=== PATIENT | male | born 1945 | race Caucasian/White ===

== ENCOUNTER 2016-12-27 15:12 | Observation (INO) | payer MEDICARE, OTHER ==
[~2016-12-27] VITALS: Ht 190.5 cm; Wt 171.8 kg
[~2016-12-27 15:12] MED LIST: ASPI-973 PO; GLIP10TA10 PO; HYDR50TA3 PO; INSU100V7 SUBQ; LISI-567 PO; PIOG30TA26 PO; RIVA20TA PO; SIMV20TA4 PO
[2016-12-27 15:15] VITALS: BP 143/82; PULSE 85; RESP 16; O2SAT 97
[2016-12-27 16:00] LABS: BASOPHILS % (AUTO) 0.5 % (0-3); EOSINOPHILS % (AUTO) 1.3 % (0-5); MONOCYTES % (AUTO) 8.4 % (4-12); Mean Corpuscular Hemoglobin 27.8 pg (27.0-35.0); Mean Corpuscular Volume 82.2 fL (81-100); NEUTROPHILS % (AUTO) 66.9 % (40-74); Platelet Count 224 bil/L (150-400)
[2016-12-27 16:19] LABS: INR 1.06 ratio
[2016-12-27 16:30] LABS: TROPONIN T 0.016 ug/L (0.0-0.011)
[2016-12-27 16:41] LABS: Magnesium 1.9 mg/dL (1.6-2.6)
--- NOTE | 2016-12-27 16:59 | DRSVH ---
PROCEDURE: X-RAY CHEST, TWO VIEWS ([id number]) INDICATIONS: abnormal ekg, left arm pain. TECHNIQUE: 2 views of the chest were acquired. COMPARISON: [facility], CR, XR CHEST 1VW (PORTABLE), 04/04/2016, 10:13. FINDINGS: Surgical changes and devices: None. Lungs and pleura: No pleural effusions or pneumothorax. Lungs are clear. Mediastinum: Mediastinal contours are normal. Heart size is normal. Bones and chest wall: No suspicious bony abnormalities. Soft tissues appear unremarkable. IMPRESSION: No acute disease Dictated by: Jorge Troy M.D. on 12/27/2016 at 16:57 Approved by: Jorge Troy M.D. on 12/27/2016 at 16:57
--- NOTE | 2016-12-27 17:34 | ED.REPORT ---
HPI-Chest Pain 40 and Over Date of Service Dec 27, 2016 ED Provider: Dale Mcdaniel PA-C Micheal is a 71-year-old male with a history of diabetes, hypertension, hyperlipidemia and pulmonary embolus who presents with a chief complaint of neck and shoulder pain. Reports he had an episode began as pain in the side and left side of his neck and progressive pain in his left shoulder. Pain started at rest. He called EMS at this point. He reports that his pain resolved shortly after calling EMS, which administered aspirin.. Denies diaphoresis, chest pain, palpitations, dizziness, syncope, shortness of breath, wheezing. Denies history of cardiac disease, angina, [place]. Review of records reveals a diagnosis of unstable angina. Patient reports being diagnosed with a PE 2 months ago. He is currently taking xarelto. Nursing Notes Stated Complaint: CHEST PAIN- HAD EKG DONE BY PARAMEDICS Chief Complaint: General Complaint Nursing Notes Reviewed: Yes Allergies: Coded Allergies: Penicillins (Verified Allergy, Severe, HIVES, 12/27/16) cephalexin (Unverified Allergy, Severe, HIVES, 12/27/16) hydrocodone bitartrate (Verified Allergy, Severe, Hives, 12/27/16) doxycycline (Unverified Allergy, Unknown, UNKNOWN, 12/27/16) Scheduled Aspirin (Aspirin) 81 Mg Tablet 81 MG PO DAILY Glipizide (Glipizide) 10 Mg Tablet 10 MG PO BIDAC Hydrochlorothiazide (Hydrochlorothiazide) 50 Mg Tablet 50 MG PO DAILY Insulin Glargine (Lantus U100 Insulin Vial) 100 Unit/Ml Vial 50 UNIT SUBQ HS Lisinopril (Lisinopril) 20 Mg Tablet 20 MG PO DAILY Pioglitazone (Pioglitazone) 30 Mg Tablet 30 MG PO DAILY Rivaroxaban (Xarelto) 20 Mg Tablet 20 MG PO MORNING Simvastatin (Simvastatin) 20 Mg Tablet 20 MG PO HS General Time Seen by MD: 17:15 Chief Complaint Other (neck and shoulder pain.) Sudden in Onset?: Yes Past Medical History Past Medical History Incontinence prostate, kidney and colon cancer depression anxiety pneumonia bipolar disorder previous suicied attempt GERD UTI squamos cell CA face osteoarthritis Reports: Diabetes mellitus, Hyperlipidemia, Hypertension Past Surgical History L nephrectomy, radical prostatectomy cholecystectomy vasectomy orchiectomy wrist, ankle and foot repair Smoking History Light Tobacco Smoker Social History Alcohol Use: "Social" Drug Use: Denies drug use Other Social History: Good social support, Ambulatory Status Independent Review of Systems General: Denies fever, chills, malaise. HEENT: Denies congestion, headache, sore throat. Respiratory: Denies dyspnea, cough, shortness of breath, wheezing. Cardiovascular: Denies chest pain, palpitations. Gastrointestinal: Denies vomiting, diarrhea, abdominal pain. Genitourinary: Denies frequency, urgency, dysuria, hematuria. Otherwise as noted in HPI. Physical Exam General: Well appearing, well developed, obese, no acute distress. Head: Atraumatic, normocephalic. Eyes: No scleral icterus or injection. No discharge. Vision grossly intact. ENT: Voice clear, hearing grossly intact. Respiratory: Regular rate and rhythm. Breath sounds present, clear to auscultation and equal bilaterally. No respiratory distress. No increased work of breathing, speaks in complete sentences. Cardiovascular: Regular rate and rhythm, without murmur, gallop or rub. No pedal edema. Gastrointestinal: Obese non-tender without guarding or rebound. Bowel sounds normoactive. Skin: Warm and dry. Neurological: Grossly nonfocal. Psychological: Alert and oriented. Speech appropriate, linear and logical. Behavior appropriate. Initial Vital Signs Vital Signs (First) Date Time Temp Pulse Resp B/P Pulse Ox O2 Delivery O2 Flow Rate FiO2 12/27/16 15:15 36.2 85 16 143/82 97 Room Air Initial VS: Reviewed, Vital signs normal Interpretation & Diagnostics Lab Results Interpretation Result Diagram: 12/27/16 1546 12/27/16 1546 Test 12/27/16 15:46 White Blood Count 8.3th/mm3 (3.8-10.1) Red Blood Count 4.93mil/mm3 (4.40-5.80) Hemoglobin 13.7g/dL (13.8-17.2) Hematocrit 40.5% (41.0-50.0) Mean Corpuscular Volume 82.2fL (81-100) Mean Corpuscular Hemoglobin 27.8pg (27.0-35.0) Mean Corpuscular Hemoglobin Concent 33.8% (32.0-37.0) Red Cell Distribution Width 13.8% (12.3-15.4) Platelet Count 224bil/L (150-400) Neutrophils (%) (Auto) 66.9% (40-74) Lymphocytes (%) (Auto) 22.8% (14-46) Monocytes (%) (Auto) 8.4% (4-12) Eosinophils (%) (Auto) 1.3% (0-5) Basophils (%) (Auto) 0.5% (0-3) Prothrombin Time 11.4sec (8.1-12.5) Prothromb Time International Ratio 1.06ratio D-Dimer < 0.5mg/L (<0.50) Sodium Level 134mEq/L (134-144) Potassium Level 4.1mEq/L (3.5-5.2) Chloride Level 96mEq/L (97-108) Carbon Dioxide Level 25mmol/L (18-29) Blood Urea Nitrogen 27mg/dL (8-27) Creatinine 1.53mg/dL (0.76-1.27) Estimat Glomerular Filtration Rate 48mL/min (>59) Glucose Level 277mg/dL (60-99) Calcium Level 9.2mg/dL (8.5-10.1) Magnesium Level 1.9mg/dL (1.6-2.6) Total Bilirubin 0.4mg/dL (0.0-1.2) Aspartate Amino Transf (AST/SGOT) 18U/L (0-50) Alanine Aminotransferase (ALT/SGPT) 17U/L (0-44) Alkaline Phosphatase 110U/L (25-160) Troponin T 0.016ug/L (0.0-0.011) Total Protein 7.2g/dL (6.4-8.4) Albumin 3.6g/dL (3.4-5.0) Hold Page Top Tube Received (Received) ECG Interpretation ECG Interpretation: Left Bundle-branch block Interpreted by: ED physician X-Ray Chest Interpretation Chest Xray Interpretation: PROCEDURE: X-RAY CHEST, TWO VIEWS ([id number]) INDICATIONS: abnormal ekg, left arm pain. IMPRESSION: No acute disease Re-Eval/Medical Decision Med Decision/Clinical Course 71-year-old male with history of diabetes, hyperlipidemia, hypertension, PE presents with a chief complaint of neck and shoulder pain. He reports approximately a five-minute episode that started at rest and resolved spontaneously. He called paramedics who administered aspirin. He declined transport, and presented private vehicle. Physical exam is essentially normal. Patient complains of no pain or symptoms. Troponin T elevated at 0.016 D-dimer negative CMP: Chloride mildly low at 96, creatinine elevated at 1.53, the GFR 48, glucose elevated at 277. Not thought to be clinically relevant CBC: Mild anemia noted with a hemoglobin of 13.7 and hematocrit of 40.5. Not thought to be clinically relevant. EKG reveals left bundle branch block. No ischemic changes noted. This point I believe this is unstable angina, but cannot rule out ongoing cardiac event. Discussed the case with the hospitalist, who accepts admission. I discussed the case with Dr. Lawton Discharge & Departure Primary Impression: Unstable angina Disposition: ADMITTED TO HOSPITAL Referrals: Bari Sneed DO (PCP) EDSupervising Provider for APC: Ian Gallagher DO copies to: Bari Sneed Seth PA-C Dec 27, 2016 17:34
[2016-12-27 19:41] VITALS: BP 101/43; PULSE 81; RESP 18; O2SAT 99
[2016-12-27] MEDS ORDERED: Alum-Mag Hydrox-Simeth 30 mL Suspension PO PRN (19:45)
[2016-12-27] MEDS ORDERED: Ondansetron 2 mg/mL 2 mL Inj IVPUSH PRN (19:45)
[2016-12-27] MEDS ORDERED: Polyethylene Glycol (PEG) 17 Gm Powder PO PRN (19:45)
[2016-12-27 20:10] VITALS: BP 101/43; PULSE 81; RESP 18; O2SAT 99
[2016-12-27 20:26] VITALS: BP 150/88; PULSE 88; RESP 20; O2SAT 94
--- NOTE | 2016-12-27 22:23 | PCM.HPMED ---
Subjective Date of Service Dec 27, 2016 Primary Provider: Admitting Physician: Surinder Hoffman MD Primary Care Physician: Bari Sneed DO Attending Physician: Surinder Hoffman MD Chief Complaint: Left neck and shoulder pain of few minutes History of Present Illness: 71-year-old gentleman with past medical history of diabetes, hypertension, hyperlipidemia, obesity, multiple cancers( renal cancer, prostate cancer, colon cancer, skin cancer) , history of pulmonary embolism on xarelto came to emergency room due to left neck and shoulder pain. Left Neck pain started suddenly this afternoon at rest while playing game on computer. Pain moved to his left shoulder. He called EMS and was given ASA and pain resolved and was brought in to the ED. Pain is sharp and lasted for 10 -15 minutes. denies chest pain. Denies diaphoresis. Denies shortness of breath. Denies any trauma. Denies leg swelling. ED course : Unremarkable vitals and exam. EKG SR with LBBB unchanged from prior EKG. Chest x-ray normal. D-dimer negative. Troponin 0.016, creatinine 1.53 ( b/l 1.40) Admission requested to rule out ACS Review of Systems: Comprehensive review of systems performed, pertinent positives and negatives included in history of present illness Allergies Coded Allergies: Penicillins (Verified Allergy, Severe, HIVES, 12/27/16) cephalexin (Unverified Allergy, Severe, HIVES, 12/27/16) hydrocodone bitartrate (Verified Allergy, Severe, Hives, 12/27/16) doxycycline (Unverified Allergy, Unknown, UNKNOWN, 12/27/16) Home Medications Lantus 50 units at bedtime glipizide 10 mg by mouth twice a day Lisinopril 20 mg daily Hydrochlorothiazide 50 mg daily [id number] daily Simvastatin 20 mg by mouth daily Aspirin 81 mg daily xarelto 20 mg by mouth daily PMH diabetes on Lantus 50 units at bedtime, hypertension, hyperlipidemia, obesity h/o AURELIO status post rhino and palatoplasty,not on CPAP Renal cancer status post left nephrectomy 2006 Colon cancer status post resection of descending bowel 2010 Prostate cancer status post radical prostatectomy 2011 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 and Sep 2016 PE March 2016 Surgical History h/o AURELIO status post rhino and palatoplasty,not on CPAP Renal cancer status post left nephrectomy 2006 Colon cancer status post resection of descending bowel 2009 Prostate cancer status post radical prostatectomy 2012 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 obese patient is lying comfortably in hospital bed HEENT: Head is normocephalic atraumatic, Pupils equal and reactive, extraocular movements intact, Lungs clear to auscultation bilaterally Heart regular rate and rhythm without murmurs gallops or rubs Abdomen soft nontender without hepatosplenomegaly Extremities pulses are present dorsalis pedis posterior tibialis and radial. Skin is warm and dry there are no rashes, Psych alert and oriented to person place and time Neuro cranial nerves II through XII are grossly intact Lymph: There is no lymphadenopathy appreciated in the cervical supra infraclavicular regions : no mg Lab and Diagnostics Result Diagram: 12/27/16 1546 12/27/16 1546 X-Rays, CTs and MRIs PROCEDURE: X-RAY CHEST, TWO VIEWS ([id number]) INDICATIONS: abnormal ekg, left arm pain. TECHNIQUE: 2 views of the chest were acquired. COMPARISON: [facility], CR, XR CHEST 1VW (PORTABLE), 04/04/2016, 10: 13. FINDINGS: Surgical changes and devices: None. Lungs and pleura: No pleural effusions or pneumothorax. Lungs are clear. Mediastinum: Mediastinal contours are normal. Heart size is normal. Bones and chest wall: No suspicious bony abnormalities. Soft tissues appear unremarkable. IMPRESSION: No acute disease Dictated by: Jorge Troy M.D. on 12/27/2016 at 16:57 12-lead ECG EKG SR with LBBB unchanged from prior EKG Assessment & Plan 71-year-old gentleman with past medical history of diabetes, hypertension, hyperlipidemia, obesity, multiple cancers( renal cancer, prostate cancer, colon cancer, skin cancer) , history of pulmonary embolism on xarelto came to emergency room due to left neck and shoulder pain. # Left neck and shoulder pain,acute ,poa -likely musculoskeletal pain -EKG and troponin unremarkable -ACS unlikely but will do exercise stress test given multiple risk factors -D-dimer negative # history of PE on xarelto,chronic -stable,c/w xarelto #Dm -c/w lantus 50 u HS and po meds # History of Multiple cancers( kidney,colon ,prostate,skin) -follows with Dr Shea # Obesity/h/o AURELIO ,stable discussed code,Full code Admitted under observation status. Possible discharge tomorrow after stress test copies to: Bari Sneed Melaku MD Dec 27, 2016 22:23
[2016-12-27] MEDS: Insulin GLARgine 100 Unit/mL Syringe SUBQ SCH (22:51)
[2016-12-28] VITALS (8 sets, daily range): BP systolic 98–133; BP diastolic 58–78; PULSE 68–91; RESP 18–20; O2SAT 96–98
--- NOTE | 2016-12-28 00:11 | NUR ---
Admit Patient admitted to unit at 2020, able to independently transfer to bed. A&O able to make needs known. IV access obtain, and Tele monitor placed shortly after arrival. Parul, is staying through the night. The bed has been unplugged by aide at the patients request. The patient accepts responsibility of the possible consequences of the deflated mattress. now resting comfortably.
[2016-12-28 08:52] LABS: BASOPHILS % (AUTO) 0.3 % (0-3); EOSINOPHILS % (AUTO) 1.8 % (0-5); MONOCYTES % (AUTO) 8.5 % (4-12); Mean Corpuscular Hemoglobin 27.8 pg (27.0-35.0); Mean Corpuscular Volume 82.2 fL (81-100); NEUTROPHILS % (AUTO) 65.5 % (40-74); Platelet Count 224 bil/L (150-400)
--- NOTE | 2016-12-28 13:48 | NUR ---
KELSEY explained and signed. Copy provided to pt
--- NOTE | 2016-12-28 16:04 | NUR ---
Social Work Note: Initial Assessment Data& Assessment: EMR reviewed. SW met with pt and pt at bedside to discuss discharge planning, SW role explained. Micheal Browning is a 71 year old male admitted on 12/27/2016 for unstable angina. Pt has [employer] Medicare insurance coverage and sees Bari Sneed MD for primary care. Pt lives in [place] with his spouse and is independent at baseline and is currently independent in his room. Pt does not use any DME and does not have HH or SNF hx. Pt does not have LTC insurance. Pt does report being a service connected but has chosen to use his Medicare benefit during this hospitalization. Pt has [employer] paperwork completed, SW requested a copy when possible. Pt transporting pt home when medically ready. Pt and pt deny any other needs at this time. SW to continue to follow if any needs arise. Plan: Anticipated discharge home via POV when medically ready. Pt and pt deny any other needs at this time. SW to continue to follow if any needs arise. GILSON Biggs Addendum: 12/28/16 at 1608 by DESTINY STUBBS Amended: Links added.
--- NOTE | 2016-12-28 17:30 | NUR ---
Cardiac- Completed first portion of stress test this am. Denies chest pain and shortness of breath. Tele- sinus rhythm.
[2016-12-28] MEDS: Insulin GLARgine 100 Unit/mL Syringe SUBQ SCH (20:42)
--- NOTE | 2016-12-28 21:33 | PCM.PNMED ---
Subjective Date of Service Dec 28, 2016 Subjective Patient is seen and examined. Patient appears very anxious about the test result of his stress test. His troponins and ruled out this a.m. there were no telemetry monitoring events however his adjunct art history instructor who performed a stress test called saying that it is a concern for ischemia at the base of the anterior inferior wall and also heart is not from quality overall is suspecting ventricular dysfunction does follow up testing echocardiogram if desired, this arteries. In for tomorrow these results were explained to patient. His questions were answered. He says that his pain was very brief as over very small area over his left shoulder. His neck was bothering him to he says it was very intense pain that only lasted for about 4 minutes. Pain is not reproducible Exam Vital Signs Vital Sign - Last Date Time Temp Pulse Resp B/P Pulse Ox O2 Delivery O2 Flow Rate FiO2 12/28/16 20:27 36.9 77 20 110/72 96 Room Air Exam Gen.: Mildly anxious, morbidly obese HEENT: Normocephalic, atraumatic Heart grade 1+ systolic murmur is present, regular rate and rhythm Lungs decreased lung sounds in the lower bases due to body habitus Abdomen: Obese nontender to palpation Extremities unable to view as he has layers of clothes. Psych: Patient is anxious as documented above Neuro: No focal neurological deficits Lab and Diagnostics Result Diagram: 12/28/16 0835 12/28/16 0835 X-Rays, CTs and MRIs PROCEDURE: X-RAY CHEST, TWO VIEWS ([id number]) INDICATIONS: abnormal ekg, left arm pain. TECHNIQUE: 2 views of the chest were acquired. COMPARISON: [facility], CR, XR CHEST 1VW (PORTABLE), 04/04/2016, 10: 13. FINDINGS: Surgical changes and devices: None. Lungs and pleura: No pleural effusions or pneumothorax. Lungs are clear. Mediastinum: Mediastinal contours are normal. Heart size is normal. Bones and chest wall: No suspicious bony abnormalities. Soft tissues appear unremarkable. IMPRESSION: No acute disease Dictated by: Jorge Troy M.D. on 12/27/2016 at 16:57 12-lead ECG EKG SR with LBBB unchanged from prior EKG Assessment & Plan 71-year-old gentleman with past medical history of diabetes, hypertension, hyperlipidemia, obesity, multiple cancers( renal cancer, prostate cancer, colon cancer, skin cancer) , history of pulmonary embolism on xarelto came to emergency room due to left neck and shoulder pain. # Left neck and shoulder pain,acute ,poa -likely musculoskeletal pain -EKG and troponin unremarkable -ACS unlikely but will do exercise stress test given multiple risk factors -D-dimer negative -Cardiology recommends a follow-up resting echocardiogram tomorrow, this test is ordered # history of PE on xarelto,chronic -stable,c/w xarelto #Dm -c/w lantus 50 u HS and po meds # History of Multiple cancers( kidney,colon ,prostate,skin) -follows with Dr Shea # Obesity/h/o AURELIO ,stable discussed code,Full code Admitted under observation status. Possible discharge tomorrow after stress test Candice Patel DO Dec 28, 2016 21:33
[2016-12-28] MEDS: Heparin 5,000 Unit/mL Inj SUBQ SCH (21:40)
[2016-12-29 00:28] VITALS: BP 99/60; PULSE 69; RESP 18; O2SAT 93
[2016-12-29 05:20] VITALS: BP 98/58; PULSE 67; RESP 18; O2SAT 94
[2016-12-29 06:02] LABS: BASOPHILS % (AUTO) 0.3 % (0-3); EOSINOPHILS % (AUTO) 2.7 % (0-5); MONOCYTES % (AUTO) 8.6 % (4-12); Mean Corpuscular Hemoglobin 27.9 pg (27.0-35.0); NEUTROPHILS % (AUTO) 63.5 % (40-74); Platelet Count 220 bil/L (150-400)
[2016-12-29] MEDS: Heparin 5,000 Unit/mL Inj SUBQ SCH (08:11)
[2016-12-29 08:40] VITALS: PULSE 84
[2016-12-29 10:38] VITALS: BP 100/66; PULSE 80; RESP 19; O2SAT 98
--- NOTE | 2016-12-29 13:15 | PCM.DIMED ---
Discharge Instructions Date of Service Dec 29, 2016 Dates of Hospitalization Dec 27, 2016 at 19:59 Discharge Diagnosis Discharge Diagnosis Exertional dyspnea, HTN, hyperlipidemia, PE, Unstable angina, prostate and colon cancer Diet Low fat, Low Sodium, Heart Healthy Activity No restrictions Call your provider Fever or Chills, Shortness of breath, Bleeding, Chest pain, Vomitting, Excessive diarrhea, Weakness (unilateral) Patient Instructions Follow-up plan Cardiology follow up in 2 weeks after outpatient echocardiogram. F/U with PCP in one week Candice Patel DO Dec 29, 2016 13:15
--- NOTE | 2016-12-29 13:46 | NUR ---
Social Work Note: Discharge Data& Assessment: Per pt is medically ready for discharge. Micheal Browning is a 71 year old male under observation for unstable angina. Pt has had a stress test and echo completed. Per pt is medically stable and improved to discharge home via POV with outpt follow up. Pt is ambulating independently in his room. SW met with pt and pt at bedside to confirm discharge plan and assess for any unmet needs. Pt transporting pt home. Pt and pt deny any other needs. No other discharge needs identified. All updated and agreeable to plan. Plan: Per pt is medically ready to discharge home via POV with outpt follow up. Pt and pt deny any other needs. No other discharge needs identified. All updated and agreeable to plan. GILSON Biggs
--- NOTE | 2016-12-29 13:56 | NUR ---
Discharge Pt discharged to home with spouse via private vehicle. VSS. PIV removed intact. No c/o pain. All personal possessions sent with pt. Discharge and follow up instructions given to pt, and he expressed understanding. Pt was given instructions to contact his PCP to obtain the order for the outpatient echocardiogram.
--- NOTE | 2016-12-29 16:20 | DRSVH ---
PROCEDURE: 2 DAY STRESS TEST INDICATIONS: Mr. Browning is a 71-year-old gentleman with multiple cardiac risk factors, hospitalized with atypical left neck discomfort. When I talked with the patient, he had symptoms of functional c lass II to III exertional dyspnea and intermittent episodes of exertional precordial angina-like ches t discomfort that had been noted over the past couple of years. For that reason, despite his left bu ndle branch block, I suggested that the patient be exercised on a regular Lee protocol to tolerance to see if we could reproduce his angina-like symptoms and determine if he has evidence of reversible myocardial ischemia at maximum workload. COMPARISON: None. STRESS TEST: This patient was exercised on a regular Lee protocol for a total of 2 minutes and 43 seconds stopping due to symptoms of fatigue, dyspnea and mild substernal ache as well as leg fatigue. He had a rapid heart rate response to exercise increasing from 72 to a peak of 130 beats per minute with an underlying left bundle branch block pattern. Blood pressure was not able to be obtained at peak exercise because of patient instability but blood pressure in the post-exercise period was incre ased at 170/75. The patient was in normal sinus rhythm with a left bundle branch block and therefore no diagnostic EK G changes were notable. PROCEDURE: This patient received 21.3 mCi of technetium-99 tetrofosmin for the stress portion of the examination. He returned one day later for the resting portion of the examination receiving an avelino tional 24.9 mCi. FINDINGS: Raw Data: Raw data images demonstrate overall fair image quality. The patient's obesity interferes some with the overall quality of the examination. Quantitative Gated SPECT Imaging: Overall gating was quite poor, leaving the quantitative gated imag es uninterpretable. Overall left ventricular chamber size is probably normal. An echocardiogram is recommended if there needs to be any further quantification of the patient's left ventricular systoli c function, but this gated imaging is not interpretable. Quantitative Perfusion SPECT Imaging: Quantitative perfusion SPECT imaging shows a fixed inferior in feroseptal perfusion abnormality on both stress and rest perfusion imaging. It tends to improve but is not eliminated with prone imaging. IMPRESSION: Abnormal nuclear cardiac stress study: A. Very poor exercise capacity limited by symptoms of dyspnea, mild precordial chest discomfort with out diagnostic electrocardiogram changes due to a left bundle branch block. B. Uninterpretable gated imaging. Echocardiogram suggested to evaluate global left ventricular syst olic function. C. Fixed inferoseptal region of hypoperfusion suggesting the possibility of previous basal inferior myocardial infarction. No regional reversible perfusion abnormalities that would suggest ischemia. Clinical correlation suggested. Dictated by: Warren Reddy M.D. on 12/29/2016 at 12:36 Transcribed by: LEANDRO on 12/29/2016 at 19:19 Approved by: Warren Reddy M.D. on 02/25/2017 at 16:48
[2016-12-29] MEDS ORDERED: Insulin Human REGular 300 Unit/3 mL Inj SUBQ SCH (21:37)
--- NOTE | 2016-12-30 17:26 | PCM.DC.MED ---
Discharge Summary Date of Service Dec 30, 2016 Dates of Hospitalization Date of Hospital Admission Dec 27, 2016 at 19:59 Date of Discharge: Dec 29, 2016 Providers: Admitting Physician: Surinder Hoffman MD Primary Care Physician: Bari Sneed DO Attending Physician: Surinder Hoffman MD Diagnosis at Time of Discharge Diagnosis at Time of Discharge Exertional dyspnea, HTN, hyperlipidemia, PE, Unstable angina, prostate and colon cancer Consultations Cardiology Procedures XRay, CTs & MRIs PROCEDURE: X-RAY CHEST, TWO VIEWS ([id number]) INDICATIONS: abnormal ekg, left arm pain. TECHNIQUE: 2 views of the chest were acquired. COMPARISON: [facility], CR, XR CHEST 1VW (PORTABLE), 04/04/2016, 10: 13. FINDINGS: Surgical changes and devices: None. Lungs and pleura: No pleural effusions or pneumothorax. Lungs are clear. Mediastinum: Mediastinal contours are normal. Heart size is normal. Bones and chest wall: No suspicious bony abnormalities. Soft tissues appear unremarkable. IMPRESSION: No acute disease Dictated by: Jorge Troy M.D. on 12/27/2016 at 16:57 ECG 12 Lead EKG SR with LBBB unchanged from prior EKG Other Diagnostics [facility] Diagnostic Imaging Department [place], [place] [id number] Patient Name: TENISHA LANZA MR#: [id number] Location: [facility] [place] Ordering Phys: Surinder Hoffman MD Date of Service: 12/28/161958 Caution: Report not yet finalized and possibly incomplete! PROCEDURE: 2 DAY STRESS TEST INDICATIONS: Mr. Lanza is a 71-year-old gentleman with multiple cardiac risk factors, hospitalized with atypical left neck discomfort. When I talked with the patient, he had symptoms of functional class II to III exertional dyspnea and intermittent episodes of exertional precordial angina-like chest discomfort that had been noted over the past couple of years. For that reason, despite his left bundle branch block, I suggested that the patient be exercised on a regular Lee protocol to tolerance to see if we could reproduce his angina- like symptoms and determine if he has evidence of reversible myocardial ischemia at maximum workload. COMPARISON: None. STRESS TEST: This patient was exercised on a regular Lee protocol for a total of 2 minutes and 43 seconds stopping due to symptoms of fatigue, dyspnea and mild substernal ache as well as leg fatigue. He had a rapid heart rate response to exercise increasing from 72 to a peak of 130 beats per minute with an underlying left bundle branch block pattern. Blood pressure was not able to be obtained at peak exercise because of patient instability but blood pressure in the post-exercise period was increased at 170/75. The patient was in normal sinus rhythm with a left bundle branch block and therefore no diagnostic EKG changes were notable. PROCEDURE: This patient received 21.3 mCi of technetium-99 tetrofosmin for the stress portion of the examination. He returned one day later for the resting portion of the examination receiving an additional 24.9 mCi. FINDINGS: Raw Data: Raw data images demonstrate overall fair image quality. The patient' s obesity interferes some with the overall quality of the examination. Quantitative Gated SPECT Imaging: Overall gating was quite poor, leaving the quantitative gated images uninterpretable. Overall left ventricular chamber size is probably normal. An echocardiogram is recommended if there needs to be any further quantification of the patient's left ventricular systolic function, but this gated imaging is not interpretable. Quantitative Perfusion SPECT Imaging: Quantitative perfusion SPECT imaging shows a fixed inferior inferoseptal perfusion abnormality on both stress and rest perfusion imaging. It tends to improve but is not eliminated with prone imaging. IMPRESSION: Abnormal nuclear cardiac stress study: A. Very poor exercise capacity limited by symptoms of dyspnea, mild precordial chest discomfort without diagnostic electrocardiogram changes due to a left bundle branch block. B. Uninterpretable gated imaging. Echocardiogram suggested to evaluate global left ventricular systolic function. C. Fixed inferoseptal region of hypoperfusion suggesting the possibility of previous basal inferior myocardial infarction. No regional reversible perfusion abnormalities that would suggest ischemia. Clinical correlation suggested. Dictated by: Warren Reddy M.D. on 12/29/2016 at 12:36 Transcribed by: LEANDRO on 12/29/2016 at 19:19 Brief History 71-year-old gentleman with past medical history of diabetes, hypertension, hyperlipidemia, obesity, multiple cancers( renal cancer, prostate cancer, colon cancer, skin cancer) , history of pulmonary embolism on xarelto came to emergency room due to left neck and shoulder pain. Left Neck pain started suddenly this afternoon at rest while playing game on computer. Pain moved to his left shoulder. He called EMS and was given ASA and pain resolved and was brought in to the ED. Pain is sharp and lasted for 10 -15 minutes. denies chest pain. Denies diaphoresis. Denies shortness of breath. Denies any trauma. Denies leg swelling. ED course : Unremarkable vitals and exam. EKG SR with LBBB unchanged from prior EKG. Chest x-ray normal. D-dimer negative. Troponin 0.016, creatinine 1.53 ( b/l 1.40) Admission requested to rule out ACS Hospital Course 71-year-old gentleman with past medical history of diabetes, hypertension, hyperlipidemia, obesity, multiple cancers( renal cancer, prostate cancer, colon cancer, skin cancer) , history of pulmonary embolism on xarelto came to emergency room due to left neck and shoulder pain. # Left neck and shoulder pain,acute ,poa: His neck and shoulder pain are felt to be musculoskeletal. ACS is ruled out. 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 (suzan poor exercise capacity limited by symptoms of dyspnea, mild precordial chest discomfort without diagnostic electrocardiogram changes due to a left bundle branch block). suggested. They have performed a resting study the following morning and recommend an outpatient echo to determine LV function. On the day of discharge patient is not having any dyspnea, ambulating in his room and tolerating cardiac diet. Exertional Dyspnea: This is more concerning to cardiology and they worked him up as above and recommended a f/u Echo as outpatient. # history of PE on xarelto,chronic -stable,c/w xarelto #Diabetes Mellitus, POA, chronic: Patient is managed wit lantus 50 u HS and po meds , moderate SSI # History of Multiple cancers( kidney,colon ,prostate,skin) : Stable # Obesity/h/o AURELIO ,stable Exam Vital Signs (Last) Date Time Temp Pulse Resp B/P Pulse Ox O2 Delivery O2 Flow Rate FiO2 12/29/16 10:38 36.8 80 19 100/66 98 Room Air Exam General: Morbidly obese Eyes: [place] conjunctivae. No ptosis, PERRL Neck: No masses, trachea midline, no thyromegaly Lungs: Some what diminished due to large body habitus CV: RRR, no murmurs/rubs/gallops, normal PMI GI: Soft, non-tender with no hepatosplenomegaly MSK: Tenderness to deep palpation of L side neck and shoulder Skin: Warm and dry. Psych: A&O X3, with approprate affect Test 12/27/16 15:46 12/27/16 22:24 12/28/16 08:35 12/29/16 05:34 Prothrombin Time 11.4sec (8.1-12.5) Prothromb Time International Ratio 1.06ratio D-Dimer < 0.5mg/L (<0.50) Magnesium Level 1.9mg/dL (1.6-2.6) Total Bilirubin 0.4mg/dL (0.0-1.2) Aspartate Amino Transf (AST/SGOT) 18U/L (0-50) Alanine Aminotransferase (ALT/SGPT) 17U/L (0-44) Alkaline Phosphatase 110U/L (25-160) Total Protein 7.2g/dL (6.4-8.4) Albumin 3.6g/dL (3.4-5.0) Hold Page Top Tube Received (Received) Troponin T 0.011ug/L (0.0-0.011) White Blood Count 6.9th/mm3 (3.8-10.1) Red Blood Count 4.77mil/mm3 (4.40-5.80) Hemoglobin 13.3g/dL (13.8-17.2) Hematocrit 39.1% (41.0-50.0) Mean Corpuscular Volume 82.0fL (81-100) Mean Corpuscular Hemoglobin 27.9pg (27.0-35.0) Mean Corpuscular Hemoglobin Concent 34.0% (32.0-37.0) Red Cell Distribution Width 13.7% (12.3-15.4) Platelet Count 220bil/L (150-400) Neutrophils (%) (Auto) 63.5% (40-74) Lymphocytes (%) (Auto) 24.8% (14-46) Monocytes (%) (Auto) 8.6% (4-12) Eosinophils (%) (Auto) 2.7% (0-5) Basophils (%) (Auto) 0.3% (0-3) Sodium Level 138mEq/L (134-144) Potassium Level 3.8mEq/L (3.5-5.2) Chloride Level 99mEq/L (97-108) Carbon Dioxide Level 23mmol/L (18-29) Blood Urea Nitrogen 23mg/dL (8-27) Creatinine 1.27mg/dL (0.76-1.27) Estimat Glomerular Filtration Rate 59mL/min (>59) Glucose Level 140mg/dL (60-99) Calcium Level 8.8mg/dL (8.5-10.1) Discharge Medications Discharge Medications Aspirin (Aspirin) 81 Mg Tablet 81 MG PO DAILY (Reported) Glipizide (Glipizide) 10 Mg Tablet 10 MG PO BIDAC (Reported) Hydrochlorothiazide (Hydrochlorothiazide) 50 Mg Tablet 50 MG PO DAILY (Reported ) Insulin Glargine (Lantus U100 Insulin Vial) 100 Unit/Ml Vial 50 UNIT SUBQ HS ( Reported) Lisinopril (Lisinopril) 20 Mg Tablet 20 MG PO DAILY (Reported) Pioglitazone (Pioglitazone) 30 Mg Tablet 30 MG PO DAILY (Reported) Rivaroxaban (Xarelto) 20 Mg Tablet 20 MG PO MORNING (Reported) Simvastatin (Simvastatin) 20 Mg Tablet 20 MG PO HS (Reported) Followup Plan Follow-up plan Cardiology follow up in 2 weeks after outpatient echocardiogram. F/U with PCP in one week Discharge Diet: Low fat, Low Sodium, Heart Healthy Discharge Activity: No restrictions Candice Patel DO Dec 30, 2016 17:26
[2017-01-20] MEDS ORDERED: CHOL10008 PO (13:39)
== END 2016-12-29 13:54 | disposition home or self-care (01) ==
LOC: SED 15:12 → OSC 19:59
PROVIDERS: ADMIT Internal Medicine; ATTEND Internal Medicine
DX: M54.2 Cervicalgia (principal); M25.512 Pain in left shoulder; R06.00 Dyspnea, unspecified; E11.9 Type 2 diabetes mellitus without complications; I10 Essential (primary) hypertension; E78.5 Hyperlipidemia, unspecified; K21.9 Gastro-esophageal reflux disease without esophagitis; I44.7 Left bundle-branch block, unspecified; E66.9 Obesity, unspecified; Z79.82 Long term (current) use of aspirin; Z79.84 Long term (current) use of oral hypoglycemic drugs; Z79.4 Long term (current) use of insulin; Z85.038 Personal history of other malignant neoplasm of large intestine; Z85.828 Personal history of other malignant neoplasm of skin; Z85.46 Personal history of malignant neoplasm of prostate; Z85.528 Personal history of other malignant neoplasm of kidney; Z90.5 Acquired absence of kidney; Z90.79 Acquired absence of other genital organ(s); Z90.49 Acquired absence of other specified parts of digestive tract; Z96.651 Presence of right artificial knee joint; Z79.01 Long term (current) use of anticoagulants; Z86.711 Personal history of pulmonary embolism; Z68.42 Body mass index [BMI] 45.0-49.9, adult; Z87.891 Personal history of nicotine dependence
CPT/HCPCS: 36415; 71020; 78452; 80048; 80053; 82948; 83036; 83735; 84484; 85025; 85379; 85610; 93005; 93017; 99285; A9502; G0378; J1644; J1815

== ENCOUNTER 2017-01-21 13:22 | Day surgery (SDC) | payer MEDICARE ==
[~2017-01-21] VITALS: Ht 190.5 cm; Wt 172.0 kg
[~2017-01-21 13:22] MED LIST changes: +CHOL10008 PO; +Lactated Ringer's 1,000 ML IV ONE
[2017-01-21] MEDS ORDERED: fentaNYL-PF 50 mCg/mL 2 mL Inj ONE (13:23)
[2017-01-21] MEDS ORDERED: Propofol 10,000 mCg/mL 20 mL Inj ONE (13:23)
[2017-01-21 14:31] VITALS: BP 120/61; PULSE 85; RESP 16; O2SAT 96
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
[2017-01-21] MEDS ORDERED: Lactated Ringer's 1,000 ML IV SCH (15:59)
[2017-01-21] MEDS ORDERED: MetoCLOpramide 5 mg/mL 2 mL Inj IVPUSH PRN (16:00)
[2017-01-21] MEDS ORDERED: Ondansetron 2 mg/mL 2 mL Inj IVPUSH PRN (16:00)
[2017-01-21 16:19] VITALS: BP 102/69; PULSE 78; RESP 14; O2SAT 94
--- NOTE | 2017-01-21 16:24 | PCM.ANEP1 ---
Post Anesthesia Phase 1 PACU Phase 1 Assessment Vital Signs Vital Signs Date Time Temp Pulse Resp B/P Pulse Ox O2 Delivery O2 Flow Rate FiO2 01/21/17 16:19 78 14 102/69 94 Room Air 01/21/17 14:31 85 16 120/61 96 Room Air Anesthetic Administered: MAC Level of Alertness: Awake, talking MOJICA's with Equal Strength: Yes Pain: No Nausea or Vomiting: No Oxygen Delivery: Room Air Lungs: Clear to Auscultation, Normal Air Movement Dermatome Level: Full Sensation Royal Hicks MD Jan 21, 2017 16:24
--- NOTE | 2017-01-21 16:36 | PCM.ANEP2 ---
Post Anesthesia Evaluation ASA/CMS Post Anesthesia VS in Patient's Normal Range?: Yes Resp Stable; Airway Patent?: Yes CV Function & Hydration Stable: Yes Mental Status Recovered?: Yes Pain control Satisfactory?: Yes N/V Control Satisfactory?: Yes Royal Hicks MD Jan 21, 2017 16:36
[2017-01-21 16:38] VITALS: BP 96/63; PULSE 84; RESP 14; O2SAT 95
--- NOTE | 2017-01-21 18:21 | ENDO ---
[address] [address] ENDOSCOPY PROCEDURE PATIENT: TENISHA LANZA : 1945 MR#: [id number] ADMIT: 01/21/2017 JOB ID: [id number] DATE: 01/21/2017 PRIMARY PROVIDER: Bari Sneed MD PROCEDURE: 1. Colonoscopy. 2. Cold forceps polypectomy. INDICATIONS: This is a 71-year-old male with a history of colon cancer and a personal history of colon polyps. The patient had a transverse colon limited resection for the lesion that was found in 2008. Surgery was October 2009. EQUIPMENT: PCCircuLite H 180 AL. SEDATION: Monitored anesthesia as provided by Dr. Royal Hicks. COMPLICATIONS: None identified. BOWEL PREPARATION: Fair. PROCEDURE INFORMATION: After the risks and benefits were explained, written and verbal informed consent was obtained. The patient was brought into the endoscopy suite and placed into the left lateral decubitus position. Sedation was achieved as above. A digital rectal examination accomplished. No significant pathology appreciated. The scope was introduced into the rectum and advanced under direct visualization to the cecum as identified by the appendiceal orifice and ileocecal valve. The scope was slowly withdrawn to carefully examine the mucosa for any defects or lesions. About the transverse colon, there was a diminutive polyp, perhaps 3 mm, removed with cold forceps. No obvious location for the anastomosis identified indicating that it was widely patent. No other significant colonic pathology identified throughout. Mild internal hemorrhoids noted on direct views. After the procedure was complete, the colon was decompressed, the scope removed from the patient who tolerated the procedure well. FINDINGS: As above. Diminutive transverse colon polyp. No other significant pathology throughout. ENDOSCOPIC DIAGNOSES: 1. Colon polyp. 2. Hemorrhoids. RECOMMENDATIONS: 1. Await histopathology. 2. Considering the small polyp seen today and the fair prep conditions, based on his history, I would recommend a repeat colonoscopy in three years.
--- NOTE | 2017-01-28 16:31 | PATH ---
SURGICAL PATHOLOGY Attending Physician:Geronimo Coyle CASE STATUS: Signed Out * Amended * PATIENT NAME: TENISHA LANZA PID: [id number] : 1945 DATE COLLECTED:01/21/2017 00:00 SPECIMEN: Colon, Biopsy CLINICAL HISTORY: PHX OF POLYPS 1). TRANSVERSE COLON POLYPS X1 FINAL DIAGNOSIS: Transverse Colon Polyps, Biopsy: Tubular adenoma; negative for high-grade dysplasia. ICD10 K63.5 This case was reviewed and interpreted by Dr. Noemy Israel. The final diagnosis is unchanged. This amendment is issued in order for the report to cross the interface and be available in the hospital electronic medical record. GROSS DESCRIPTION: The specimen is received in one formalin filled container labeled with the patient's name, sublabeled "transverse colon polyp" and consists of a 0.2 x 0.2 x 0.2 CM portion of tissue which is entirely submitted in one cassette. 01/22/2017 [facility] ICD-9 CODES: CPT CODES: 1: 06428 AMENDMENT(S): Amended: 01/28/2017 by Waleska Tabares Reason:Miscellaneous The final diagnosis is unchanged. This amendment is issued in order for the report to cross the interface and be available in the hospital electronic medical record. Previous Signout Date: 01/23/2017 Electronically Signed Out Chinyere White MD [facility] Pathology [facility] [address], [place] [address] Technical component performed at [facility], [address] [place] [address] [address], [place], [address]
== END 2017-01-21 23:59 | disposition home or self-care (01) ==
LOC: END 13:22
PROVIDERS: ATTEND Internal Medicine Gastroenterology
DX: Z12.11 Encounter for screening for malignant neoplasm of colon (principal); Z85.038 Personal history of other malignant neoplasm of large intestine; D12.3 Benign neoplasm of transverse colon; K64.9 Unspecified hemorrhoids; I10 Essential (primary) hypertension; N40.1 Benign prostatic hyperplasia with lower urinary tract symptoms; E11.9 Type 2 diabetes mellitus without complications; N13.8 Other obstructive and reflux uropathy; E66.3 Overweight; K44.9 Diaphragmatic hernia without obstruction or gangrene; K21.9 Gastro-esophageal reflux disease without esophagitis; Z85.46 Personal history of malignant neoplasm of prostate; Z85.3 Personal history of malignant neoplasm of breast; Z85.528 Personal history of other malignant neoplasm of kidney; Z90.5 Acquired absence of kidney; Z90.79 Acquired absence of other genital organ(s); Z79.82 Long term (current) use of aspirin; Z79.4 Long term (current) use of insulin; Z79.01 Long term (current) use of anticoagulants; Z68.42 Body mass index [BMI] 45.0-49.9, adult; Z79.84 Long term (current) use of oral hypoglycemic drugs; Z96.651 Presence of right artificial knee joint; Z87.891 Personal history of nicotine dependence; Z85.828 Personal history of other malignant neoplasm of skin
CPT/HCPCS: 45380; J2250; J3010; J7120